=== PATIENT | male | born 1965 | race Two or more races ===

== ENCOUNTER 2024-02-12 14:55 | Outpatient (AMB) | payer BC, SELFPAY ==
[2024-02-12 15:24] VITALS: BP 131/67; PULSE 64; RESP 18; TEMP 36.5; O2SAT 96; BMI 22.6
--- NOTE | 2024-02-12 15:24 | GSCOFFNT_ITS ---
V[facility] Signs - [facility] 02/12/24 15:24 02/12/24 15:57 Height 1.73 m Height Method Stated Weight 67.614 kg Weight Measurement Method Standing Scale BMI 22.6 BP 131/67 H 131/67 H Blood Pressure Source Automatic Cuff Blood Pressure Location Right Upper Arm Position Sitting Respiration 18 18 Pulse 64 64 Pulse Source Monitor Temp 97.7 F 97.7 F Temp Source Temporal Artery Scan Pulse Oximetry (%) 96 96 Oxygen Delivery Method Room Air Med/Allergies Allergies & Medications Allergies No Known Allergies Allergy (Verified 02/12/24 15:25) Medication Reconciliation hydrocortisone acetate 25 mg rectal suppository (Anusol-HC) 25 mg [place] BID #24 ea 02/12/24 [Rx] MA Intake Visit Data Collection New Patient or Established: New Patient (never been to [facility]) Seen by Clinical Staff ONLY (RN/MA): No Reason for Visit:: referral hemorrhoids Pain Present Currently: No Cathead Worker Required: Yes PCP or OBGYN visit in last 3 months: Yes Hx Now: No Do You Feel Safe at Home: Yes Authorities Contacted: N/A Smoking Status Smoking Status: Never smoker Immunization / Flu Flu Vaccine in the Last 12 Months: No Flu Vaccine Exclusion Criteria: Refused by Patient Past Medical History Past Medical History NEUROLOGIC: Negative Neurological Disorders or Seizures CARDIAC: Negative Cardiac Disorders or Congestive Heart Failure RESPIRATORY: Negative Chronic Obstructive Pulmonary Disease (COPD) GASTROINTESTINAL: Negative Gastrointestinal Disorders GENITOURINARY: Negative Genitourinary Disorders or Renal Disease ENDOCRINE: Negative Endocrine Disorders, Diabetes Mellitus Type 1 or Diabetes Mellitus Type 2 HEMATOLOGIC: Negative Blood Disorders OTHER HISTORY: Negative Autoimmune Disease, Blood Transfusions or Anesthesia Reactions Surgical History SURGICAL: Positive Eye Surgery (Right eye Cataract) Social History SMOKING STATUS: Smoking status: Never smoker ALCOHOL: Alcohol Intake: Never HOUSING: Housing: House HPI HPI Narrative 59 y/o M presenting to the clinic for surgical evaluation of external hemorrhoids that are ongoing for 7 years. Per patient, he has 1-2 external hemorrhoids that are uncomfortable and sensitive to wiping with blood spotting on his tissue. He reports normal soft BM with drinking fiber, denies any constipation, straining or difficulty urinating. 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 ROS Review of Systems Systems Reviewed: All systems reviewed, normal except as documented Objective/Exam General General Appearance: alert, cooperative and well groomed Resp Respiratory exam: Absent respiratory distress Rectal Rectal exam: Present other (two enlarged external hemorrhoids with dark discoloration on left; normal LATA, internal hemorrhoid seen on anoscopy) Assessment & Plan Diagnosis / Problem List (1) External hemorrhoids: Status: Acute Assessment & Plan: 59M presenting with longstanding history of symptomatic hemorrhoids. Given the swollen nature I recommended sitz baths and will prescribe anusol suppositories, however as he has healthy bowel habits I did offer surgical intervention. I explained risks of surgery including bleeding, severe pain, inability to urinate requiring catheterization and hemorrhoid persistence/recurrence. Pt expressed understanding and would like to proceed [facility] Office Procedures GNS Level of Care Nursing/Assessment Patient Status: Established Patient Nursing Assessment/Reassesment: Medication Reconciliation, Update PMH in EMR and Vital Signs Coordination of Care: Complex Care and Chronic Disease 1-5, Education Complex Pt/Fam, Consent,records obtained, informed consent and Staff clarify orders Special Needs: Language special needs Established Patient Charge Established Patient Point Assignment: 90 Patient Portal Questionaires Social History Living Situation History Housing: House Tobacco History Smoking Status: Never smoker Alcohol History Alcohol Intake: Never Domestic Abuse History Do You Feel Safe at Home: Yes Review of Systems Report any current symptoms Only answer those that you have currently: Past Medical History Past Medical History Have you ever been diagnosed with any of the following: Neurological Problems Seizures: No Cardiology Problems Congestive Heart Failure: No Respiratory Problems Chronic Obstructive Pulmonary Disease (COPD): No Genital/Urinary Problems Renal Disease: No Endocrine Problems Diabetes Mellitus Type 1: No Diabetes Mellitus Type 2: No Other Problems Autoimmune Disease: No Blood Transfusions: No Anesthesia Reactions: No
--- NOTE | 2024-02-12 15:50 | PD.GSCLVISIT ---
Vital Signs - [facility] 02/12/24 15:24 02/12/24 15:57 Height 1.73 m Height Method Stated Weight 67.614 kg Weight Measurement Method Standing Scale BMI 22.6 BP 131/67 H 131/67 H Blood Pressure Source Automatic Cuff Blood Pressure Location Right Upper Arm Position Sitting Respiration 18 18 Pulse 64 64 Pulse Source Monitor Temp 97.7 F 97.7 F Temp Source Temporal Artery Scan Pulse Oximetry (%) 96 96 Oxygen Delivery Method Room Air Med/Allergies Allergies & Medications Allergies No Known Allergies Allergy (Verified 02/12/24 15:25) Medication Reconciliation hydrocortisone acetate 25 mg rectal suppository (Anusol-HC) 25 mg [place] BID #24 ea 02/12/24 [Rx] MA Intake Visit Data Collection Do You Feel Safe at Home: Yes Smoking Status Smoking Status: Never smoker Past Medical History Past Medical History NEUROLOGIC: Negative Neurological Disorders or Seizures CARDIAC: Negative Cardiac Disorders or Congestive Heart Failure RESPIRATORY: Negative Chronic Obstructive Pulmonary Disease (COPD) GASTROINTESTINAL: Negative Gastrointestinal Disorders GENITOURINARY: Negative Genitourinary Disorders or Renal Disease ENDOCRINE: Negative Endocrine Disorders, Diabetes Mellitus Type 1 or Diabetes Mellitus Type 2 HEMATOLOGIC: Negative Blood Disorders OTHER HISTORY: Negative Autoimmune Disease, Blood Transfusions or Anesthesia Reactions Surgical History SURGICAL: Positive Eye Surgery (Right eye Cataract) Social History SMOKING STATUS: Smoking status: Never smoker ALCOHOL: Alcohol Intake: Never HOUSING: Housing: House HPI HPI Narrative 59 y/o M presenting to the clinic for surgical evaluation of external hemorrhoids that are ongoing for 7 years. Per patient, he has 1-2 external hemorrhoids that are uncomfortable and sensitive to whipping with blood spotting on his tissue. He reports normal soft BM with drinking fiber, denies any constipation, straining or difficulty urinating. PMH: N/A PSH: Appy, Cataracts, Varicose vein removal; recent Colonoscopy last year in February. 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 ROS Constitutional Constitutional: Reports as per HPI, Denies chills, Denies weakness and Denies weight loss Eyes Eyes: Denies change in vision ENT Ears, Nose, Mouth, and Throat: Denies abnormal hearing, Denies otalgia and Denies odynophagia Cardiovascular Cardiovascular: Denies chest pain, Denies chest pain at rest, Denies edema and Denies pedal edema Respiratory Respiratory: Denies cough and Denies pain on inspiration Gastrointestinal Gastrointestinal: Denies abdominal pain, Denies bloating, Denies constipation and Denies odynophagia Neurologic Neurologic: Denies abnormal hearing and Denies weakness Objective/Exam General General Appearance: alert, in no apparent distress, comfortable and cooperative Rectal Rectal exam: Present hemorrhoids (2- enlarged hemorrhoids ) Assessment & Plan Diagnosis / Problem List (1) External hemorrhoids: Status: Acute Assessment & Plan: 59 y/o M presenting to the clinic with painful external hemorrhoids with some bleeding Plan After discussing the risks and benefits of THD procedure the patient opts to schedule the surgery Advised patient to use suppositories, sitz-baths, and hemorrhoid cream to reduce the inflammation prior to surgery Office Procedures GNS Level of Care Nursing/Assessment Patient Status: Established Patient Nursing Assessment/Reassesment: Medication Reconciliation, Update PMH in EMR and Vital Signs Coordination of Care: Complex Care and Chronic Disease 1-5, Education Complex Pt/Fam, Consent,records obtained, informed consent and Staff clarify orders Special Needs: Language special needs Established Patient Charge Established Patient Point Assignment: 90 Patient Portal Questionaires Social History Living Situation History Housing: House Tobacco History Smoking Status: Never smoker Alcohol History Alcohol Intake: Never Domestic Abuse History Do You Feel Safe at Home: Yes Review of Systems Report any current symptoms Only answer those that you have currently: General Complaints chills: No weakness: No weight loss: No Eyes change in vision: No Ear, Nose, & Throat abnormal hearing: No ear pain: No pain with swallowing: No Heart & Circulation chest pain: No chest pain at rest: No swelling: No foot swelling: No Breathing & Lungs cough: No pain taking a breath: No Digestive System abdominal pain: No bloating: No constipation: No Past Medical History Past Medical History Have you ever been diagnosed with any of the following: Neurological Problems Seizures: No Cardiology Problems Congestive Heart Failure: No Respiratory Problems Chronic Obstructive Pulmonary Disease (COPD): No Genital/Urinary Problems Renal Disease: No Endocrine Problems Diabetes Mellitus Type 1: No Diabetes Mellitus Type 2: No Other Problems Autoimmune Disease: No Blood Transfusions: No Anesthesia Reactions: No
== END 2024-02-12 15:54 | disposition home or self-care (01) ==
PROVIDERS: PCP Family Medicine; Referring Provider Family Medicine; Supervising Provider Surgery; Visit Provider Surgery
DX: K64.4 Residual hemorrhoidal skin tags (principal)
CPT/HCPCS: 99213; G0463

== ENCOUNTER 2024-03-10 07:05 | Day surgery (SDC) | payer BC, SELFPAY ==
[2024-03-09 07:31] VITALS: BMI 22.8
[2024-03-09 08:41] LABS: Basophils # (Auto) 0.1 Thou/mm3 (0.0-0.2); Basophils % (Auto) 1 % (0-2.5); Eosinophils # (Auto) 0.1 Thou/mm3 (0.0-0.5); Eosinophils % (Auto) 3 % (0-10); Hematocrit 42.6 % (41.0-53.0); Hemoglobin 14.4 g/dL (13.5-16.0); Immature Granulocytes % (Auto) 0 % (0-0); Immature Granulocytes Auto 0.01 Thou/mm3 (0.00-0.00); Lymphocytes # (Auto) 1.4 Thou/mm3 (1.0-4.8); Lymphocytes % (Auto) 30 % (10-50); Mean Corpuscular HGB Conc 33.8 g/dl (31.0-37.0); Mean Corpuscular Hemoglobin 30.3 pg (25.0-35.0); Mean Corpuscular Volume 90 fL (80-100); Monocytes # (Auto) 0.5 Thou/mm3 (0.0-0.8); Monocytes % (Auto) 10 % (0-12); Neutrophils # (Auto) 2.5 Thou/mm3 (1.8-7.7); Neutrophils % (Auto) 55 % (37-80); Nucleated Red Blood Cell % 0 /100 WBC (0); Platelet Count 291 Thou/mm3 (140-440); RDW Standard Deviation 50.2 fL (35.1-43.9); Red Blood Count 4.76 Miln/mm3 (4.50-5.90); White Blood Count 4.5 Thou/mm3 (3.8-10.6)
[2024-03-09 08:56] LABS: Anion Gap 7 (7-16); BUN/Creatinine Ratio 14 Ratio (12-20); Blood Urea Nitrogen 13 mg/dL (9-23); Carbon Dioxide 29.4 mMol/L (20.0-31.0); Chloride 104 mMol/L (98-107); Creatinine (Component) 0.9 mg/dL (0.6-1.3); Estimated Creatinine Clearance 85.2 mL/min (>60); Glucose 109 mg/dL (74-106); Osmolality,Calculated 280 (275-295); Potassium 4.6 mMol/L (3.4-5.1); Sodium 140 mMol/L (136-145); eGFR > 60 See Note
[2024-03-09 09:38] LABS: Prothrombin Time 10.9 Seconds (9.0-12.2)
[2024-03-10] VITALS (23 sets, daily range): BP systolic 118–156; BP diastolic 62–102; PULSE 52–95; RESP 10–20; TEMP 36.5–37.2; O2SAT 95–100; BMI 22.9
[2024-03-10] MEDS: RINGERS LACTATED 500 ML 500 ML 20 ML IV (08:24)
--- NOTE | 2024-03-10 11:53 | ESOP_ITS ---
Date of Procedure 03/10/24 Pre Op Diagnosis Symptomatic hemorrhoids Post Op Diagnosis Same Procedure Excisional hemorrhoidectomy Findings Large internal and external hemorrhoids at the left, right anterior and right posterior perianal regions Procedure Description Patient presented to my office with symptomatic hemorrhoids refractory to con servative management and in the setting of healthy bowel habits. I initially offered THD however was informed that his insurance declined to approve this procedure. I called myself for a peer to peer meeting and was advised that only excisional hemorrhoidectomy would be covered. This morning before the surgery I explained to the patient and his the risks and benefits, which ultimately are likely similar to those of THD given the large nature of patient's hemorrhoids. All questions were answered and patient ultimately agreed to proceed. Patient was brought to the OR, SCDs were placed and general anesthesia was induced. He was placed in lithotomy position with proper padding and was prepped and draped in usual sterile fashion. After timeout a LATA was performed which revealed very large internal and external hemorrhoids at the left perianal region, as well as the right anterior and posterior perianal regions. Attention was first turned to the left sided hemorrhoid. A figure of 8 Vicryl suture was placed at the most proximal aspect of the hemorrhoid. The anal Derm adjacent to the hemorrhoid was then grasped with a hemostat and half percent Marcaine was injected to lift the lesion. The anoderm was incised with a #15 blade and the tissues were dissected so that the anal sphincter was released from the hemorrhoidal tissue. The hemorrhoid was then excised using the small harmonic device until the [id number] suture was reached. The specimen was handed off and the anal mucosa was reapproximated for hemostasis using that 0 Vicryl suture. The right anterior and posterior hemorrhoids were excised in the same fashion. The anus was inspected and no bleeding was seen. Left and right pudendal nerve blocks were performed with half percent Marcaine for a total of 20 cc. Patient was returned to supine position and extubated without complication. He was brought to PACU in stable condition Pathology / specimen Other (Left, right anterior, and right posterior hemorrhoids) Estimated Blood Loss 20 Surgeon Joan Alberto MD Surgical Staff Operation Date: 03/10/24 10:15 Case Staff MUNITIONS HANDLER SUPERVISOR: Stephanie Sood
--- NOTE | 2024-03-10 11:58 | PD.SURDS ---
Planned Discharge Date 03/10/24 DS: Providers Provider Primary care physician: David Estevez MD Attending Provider on Admission: Joan Alberto MD Attending Provider on DC: Joan Alberto MD Discharging Provider: Joan Alberto MD Diagnosis Discharge Diagnosis (1) Hemorrhoids with complication: Status: Acute Problem List Completed Was Problem List Reviewed/Reconciled?: Yes Exam Vital Signs Temp Pulse Resp BP Pulse Ox 98 F 52 L 10 L 126/74 97 03/10/24 07:55 03/10/24 07:55 03/10/24 07:55 03/10/24 07:55 03/10/24 07:55 Discharge Plan Plan Patient Disposition: HOME (Self Care) Prescriptions/Referrals Prescriptions/Med Rec: New oxycodone-acetaminophen [Percocet] 5-325 mg tablet 1 tab PO Q6H MDD 6 tabs PRN (Reason: pain) Qty: 30 0RF ibuprofen 800 mg tablet 800 mg PO Q8H PRN (Reason: pain) Qty: 30 0RF docusate sodium [Colace] 100 mg capsule 100 mg PO QDAY Qty: 30 0RF Referrals: David Estevez MD [Primary Care Provider] - Joan Alberto MD [Physician] - (You will receive a phone call to confirm a follow-up appointment with me in 6 weeks) Patient/Caregiver Discharge Instructions Other Discharge Activity Instructions:: Avoid constipation and diarrhea You may take both Percocet and ibuprofen as needed for pain, try to stagger them so that you are not waiting too long in between doses If you develop inability to urinate, bleeding that does not stop, worsening pain, or fever please seek care in ER Education Materials: Discharge Instructions for ..., Taking a Sitz Bath Print Language: Yoruba Stand Alone Forms: Maria Luisa Award Info., Patient Portal Info Letter Discharge Order Discharge Orders: Discharge (Routine); Ordered 03/10/24 Ordered By: Joan Alberto Results Results: Laboratory Laboratory results: results reviewed Procedures Procedure Date 03/10/24 Procedures Excisional hemorrhoidectomy
--- NOTE | 2024-03-10 12:00 | SUR.PHASEI ---
1200 Patient arrived to recovery resting comfortably in [facility], on oxygen 6L via oxy mask, breathing unlabored, vital signs stable, denies pain, dressing intact to buttock; ointment, abd, fluffs, mesh underwear, no bleeding noted, lung sounds clear upon auscultation, bilateral radial pulses present when palpated, report received from Stephanie BECKER and Nestor BARRERA
--- NOTE | 2024-03-10 12:15 | SUR.PHASEI ---
[address] Alberto patient is to urinate prior to discharge
[2024-03-10] MEDS: HYDROcodone/APAP 10/325 TAB PO (12:51)
--- NOTE | 2024-03-10 12:54 | SUR.PHASEII ---
received report from nurse edge. pt states pain 10/07. pt just medicated by nurse with po after 2 doses iv meds. will give flomax when pharmacy brings.
[2024-03-10] MEDS: TAMSULOSIN HCL 0.4 MG CAPSULE PO (12:57)
[2024-03-10] MEDS: fentaNYL CIT INJ 50 mCg/ML AMP 2ML IV (13:17)
--- NOTE | 2024-03-10 13:30 | SUR.PHASEII ---
3247 patient bedside with patient
--- NOTE | 2024-03-10 13:30 | SUR.PHASEII ---
report to nurse mehdi betancourt
--- NOTE | 2024-03-10 14:25 | SUR.PHASEII ---
1425 Patient attempting to void in urinal unable to, will continue to encourage fluids for patient to void
--- NOTE | 2024-03-10 15:15 | SUR.PHASEII ---
1515 Patient sitting up in bed eating sandwich, fruit, soup, tolerating well, drinking coffee and tea
--- NOTE | 2024-03-10 15:45 | SUR.PHASEII ---
8985 Patient walked to the restroom, unable to void, will continue to monitor patient and encourage him to drink fluid
--- NOTE | 2024-03-10 16:52 | SUR.PHASEII ---
1638 Patient in the restroom unable to void, Dr. Alberto notified, MD order for patient to be bladder scan 1650 Patient bladder scan, 450ml of fluid in bladder per scan 1652 Dr. Alberto notified of results of bladder scan, orders received to continue to monitor patient, do not give patient any more fluid, call MD if patient has not urinated by 1800
--- NOTE | 2024-03-10 18:11 | SUR.PHASEII ---
Addendum entered by Joselin Kirkpatrick RN 03/10/24 18:42: correction Friday03/12/24 Original Note: [address] Alberto as patient is still unable to void, order received to catheterize patient and patient is to go home with catheter and have it removed on Friday03/11/[address] Mcmahon office, per
--- NOTE | 2024-03-10 18:28 | SUR.PHASEII ---
Olivia catheter 16F place in patient per MD order, patient will go home with olivia catheter, per MD order
--- NOTE | 2024-03-10 18:48 | SUR.PHASEII ---
1847 Dr. Alberto notified patient urinary catheter in place, patient tolerated well, drained 500ml-bright yellow, urine. Per MD patient can proceed with discharge
--- NOTE | 2024-03-10 18:56 | SUR.PHASEII ---
1856 Patient meets discharge criteria from recovery, awake and alert, breathing unlabored, vital signs stable, denies pain, dressing intact; scant amount of blood noted to dressing, new dressing provided to patient, patient and his educated on post op bleeding and when to seek medical attention, both receptive, patient denies nausea, patient is discharging with 16F Lacey catheter in place with leg secure, patient and his educated on home care for Lacey catheter and receptive, patient signed limited proficiency statement for his to automotive technician instructor Turkmen to him, discharge instructions given to patient and patient , signed discharge instructions. Patient given all his belongings prior to discharge, transported via wheelchair and left in a private vehicle.
== END 2024-03-10 18:56 | disposition home or self-care (01) ==
PROVIDERS: PCP Family Medicine; Referring Provider Surgery; Visit Provider Surgery
PROC: (CPT 46260; principal; 2024-03-10 10:00)
DX: K64.4 Residual hemorrhoidal skin tags (principal); K64.8 Other hemorrhoids
CPT/HCPCS: 46260; 36415; 80048; 85025; 85610; 85730; A4217; A4649; J1100; J2405; J2704; J3010; J3490; J7120; A9270; J1596

== ENCOUNTER 2024-03-12 12:59 | Outpatient (AMB) | payer BC, SELFPAY ==
[2024-03-12 13:09] VITALS: BP 128/75; PULSE 58; RESP 18; TEMP 36.3; O2SAT 98; BMI 22.9
--- NOTE | 2024-03-12 13:09 | GSCOFFNT_ITS ---
Vital Signs - [facility] 03/12/24 13:09 Height 1.73 m Height Method Stated Weight 68.748 kg Weight Measurement Method Standing Scale BMI 22.9 BP 128/75 Blood Pressure Source Automatic Cuff Blood Pressure Location Right Upper Arm Position Sitting Respiration 18 Pulse 58 L Pulse Source Monitor Temp 97.3 F Temp Source Temporal Artery Scan Pulse Oximetry (%) 98 Med/Allergies Allergies & Medications Allergies No Known Allergies Allergy (Verified 03/12/24 13:10) Medication Reconciliation docusate sodium 100 mg capsule (Colace) 100 mg PO QDAY #30 caps 03/10/24 [Rx Confirmed 03/12/24] ibuprofen 800 mg tablet 800 mg PO Q8H PRN pain #30 tabs 03/10/24 [Rx Confirmed 03/12/24] oxycodone-acetaminophen 5 mg-325 mg tablet (Percocet) 1 tab PO Q6H PRN pain #30 tabs 03/10/24 [Rx Confirmed 03/12/24] tamsulosin 0.4 mg capsule (Flomax) 0.4 mg PO QDAY #14 caps 03/10/24 [Rx Confirmed 03/12/24] MA Intake Visit Data Collection New Patient or Established: Established Patient (seen at [facility] within 3 years) Reason for Visit:: FOLLOW UP[ Pain Present Currently: Yes Pain Location: Buttock Pain scale:: 8 Pain Scale Used: Salazar-Irvin/Numerical Product Safety Head Required: No PCP or OBGYN visit in last 3 months: Yes Hx Now: No Do You Feel Safe at Home: Yes Authorities Contacted: N/A Smoking Status Smoking Status: Former smoker Immunization / Flu Flu Vaccine in the Last 12 Months: No Flu Vaccine Exclusion Criteria: No Exclusion Criteria Past Medical History Past Medical History NEUROLOGIC: Negative Neurological Disorders or Seizures CARDIAC: Positive Cardiac Disorders and Varicose Veins; Negative Congestive Heart Failure RESPIRATORY: Negative Chronic Obstructive Pulmonary Disease (COPD) GASTROINTESTINAL: Positive Gastrointestinal Disorders and Hemorrhoids; Negative Hepatitis GENITOURINARY: Negative Genitourinary Disorders or Renal Disease ENT: Positive Cataracts (right) ENDOCRINE: Negative Endocrine Disorders, Diabetes Mellitus Type 1 or Diabetes Mellitus Type 2 HEMATOLOGIC: Negative Blood Disorders OTHER HISTORY: Positive Chicken Pox and Clostridium Difficile; Negative Hospitalization, Autoimmune Disease, Shingles, Blood Transfusions, Blood Transfusion Reaction, Anesthesia Reactions or Cancer Family History FAMILY HISTORY: Positive Family Cardiac Disorders; Negative Family Psychiatric Problems, Family Respiratory Disorders, Family Gastrointestinal Problems, Family Cancer, Family Surgery or Family Anesthesia Reaction Surgical History SURGICAL: Positive Vascular Surgery (varicose vein excision) and Eye Surgery Social History SMOKING STATUS: Smoking status: Former smoker ALCOHOL: Alcohol Intake: Current HOUSING: Housing: House HPI HPI Narrative 59M s/p hemorrhoidectomy 03/10 complicated by urinary retention here for olivia removal. Pt reports he has lots of pain as he was not given his narcotic at the pharmacy; he has been unable to sleep and has not yet had a BM. Pt denies any other complaints ROS Review of Systems Systems Reviewed: All systems reviewed, normal except as documented Objective/Exam General General Appearance: alert, cooperative and well groomed Resp Respiratory exam: Absent respiratory distress Assessment & Plan Diagnosis / Problem List (1) Hemorrhoids with complication: Status: Acute Assessment & Plan: 59M s/p hemorrhoidectomy 03/10 complicated by urinary retention. I removed the f oley in office today and gave strict return precautions Plan: F/u in 6 weeks Office Procedures GNS Level of Care Nursing/Assessment Patient Status: Established Patient Nursing Assessment/Reassesment: Medication Reconciliation, Update PMH in EMR and Vital Signs Coordination of Care: Complex Care and Chronic Disease 1-5, Education Complex Pt/Fam, Consent,records obtained, informed consent, Results/Orders obtained and Staff clarify orders Special Needs: Language special needs Miscellaneous Interventions: Phys assist w/Procedure (CATHETER REMOVAL ) Established Patient Charge Established Patient Point Assignment: 120 Established Patient Point Charge: EP Level 3 (80-115) Patient Portal Questionaires Social History Living Situation History Housing: House Tobacco History Smoking Status: Former smoker Alcohol History Alcohol Intake: Current Domestic Abuse History Do You Feel Safe at Home: Yes Review of Systems Report any current symptoms Only answer those that you have currently: Past Medical History Past Medical History Have you ever been diagnosed with any of the following: Neurological Problems Seizures: No Cardiology Problems Congestive Heart Failure: No Varicose Veins: Yes Respiratory Problems Chronic Obstructive Pulmonary Disease (COPD): No Stomache/Intestinal Problems Hepatitis: No Hemorrhoids: Yes Genital/Urinary Problems Renal Disease: No Head,Eye,Nose,Throat Problems Cataracts: Yes (right) Endocrine Problems Diabetes Mellitus Type 1: No Diabetes Mellitus Type 2: No Other Problems Hospitalization: No Autoimmune Disease: No Shingles: No Blood Transfusions: No Blood Transfusion Reaction: No Anesthesia Reactions: No Chicken Pox: Yes Clostridium Difficile: Yes Cancer: No
== END 2024-03-12 13:14 | disposition home or self-care (01) ==
LOC: HODSRG 12:59
PROVIDERS: PCP Family Medicine; Referring Provider Family Medicine; Supervising Provider Surgery; Visit Provider Surgery
DX: Z46.6 Encounter for fitting and adjustment of urinary device (principal); Z98.890 Other specified postprocedural states
CPT/HCPCS: 99213; G0463

== ENCOUNTER → 2024-04-07 | Outpatient (CLI) | payer BC, SELFPAY ==
[2024-04-07 09:38] LABS: Glucose Estimated Average 120 mg/dL (80-131); Hemoglobin A1C 5.8 % Hgb (4.8-6.0)
[2024-04-07 09:41] LABS: Glucose,Fasting 105 mg/dL (74-106)
== END | disposition home or self-care (01) ==
LOC: COPL 08:03
PROVIDERS: PCP Family Medicine; Referring Provider Family Medicine; Visit Provider Family Medicine
DX: R73.09 Other abnormal glucose (principal)
CPT/HCPCS: 36415; 82947; 83036

== ENCOUNTER 2024-04-19 13:27 | Outpatient (AMB) | payer BC, SELFPAY ==
--- NOTE | 2024-04-19 13:35 | PD.GSCLVISIT ---
[facility] - [facility] 04/19/24 13:36 Height 1.73 m Height Method Stated Weight 69.938 kg Weight Measurement Method Standing Scale BMI 23.3 BP 123/73 Blood Pressure Source Automatic Cuff Blood Pressure Location Left Upper Arm Position Sitting Respiration 19 Pulse 59 L Pulse Source Monitor Temp 98.0 F Temp Source Temporal Artery Scan Pulse Oximetry (%) 98 Oxygen Delivery Method Room Air Med/Allergies Allergies & Medications Allergies No Known Allergies Allergy (Verified 04/19/24 13:36) Medication Reconciliation docusate sodium 100 mg capsule (Colace) 100 mg PO QDAY #30 caps 03/10/24 [Rx Confirmed 04/19/24] ibuprofen 800 mg tablet 800 mg PO Q8H PRN pain #30 tabs 03/10/24 [Rx Confirmed 04/19/24] oxycodone-acetaminophen 5 mg-325 mg tablet (Percocet) 1 tab PO Q6H PRN pain #30 tabs 03/10/24 [Rx Confirmed 04/19/24] tamsulosin 0.4 mg capsule (Flomax) 0.4 mg PO QDAY #14 caps 03/10/24 [Rx Confirmed 04/19/24] hydrocortisone 2.5 % topical cream with perineal applicator (Anusol-HC) 1 applic [place] QD-BID PRN hemorrhoids #30 grams 04/19/24 [Rx] MA Intake Visit Data Collection New Patient or Established: Established Patient (seen at [facility] within 3 years) Seen by Clinical Staff ONLY (RN/MA): No Reason for Visit:: POST OP F/U Pain Present Currently: No Office Support Assistant Required: Yes PCP or OBGYN visit in last 3 months: Yes Hx Now: No Do You Feel Safe at Home: Yes Authorities Contacted: N/A Smoking Status Smoking Status: Former smoker Immunization / Flu Flu Vaccine in the Last 12 Months: No Flu Vaccine Exclusion Criteria: No Exclusion Criteria Past Medical History Past Medical History NEUROLOGIC: Negative Neurological Disorders or Seizures CARDIAC: Positive Cardiac Disorders and Varicose Veins; Negative Congestive Heart Failure RESPIRATORY: Negative Chronic Obstructive Pulmonary Disease (COPD) GASTROINTESTINAL: Positive Gastrointestinal Disorders and Hemorrhoids; Negative Hepatitis GENITOURINARY: Negative Genitourinary Disorders or Renal Disease ENT: Positive Cataracts (right) ENDOCRINE: Negative Endocrine Disorders, Diabetes Mellitus Type 1 or Diabetes Mellitus Type 2 HEMATOLOGIC: Negative Blood Disorders OTHER HISTORY: Positive Chicken Pox and Clostridium Difficile; Negative Hospitalization, Autoimmune Disease, Shingles, Blood Transfusions, Blood Transfusion Reaction, Anesthesia Reactions or Cancer Family History FAMILY HISTORY: Positive Family Cardiac Disorders; Negative Family Psychiatric Problems, Family Respiratory Disorders, Family Gastrointestinal Problems, Family Cancer, Family Surgery or Family Anesthesia Reaction Surgical History SURGICAL: Positive Vascular Surgery (varicose vein excision) and Eye Surgery Social History SMOKING STATUS: Smoking status: Former smoker ALCOHOL: Alcohol Intake: Current HOUSING: Housing: House HPI HPI Narrative Spoke to pt with in-person in tube conversion technician 59M s/p hemorrhoidectomy 03/10 complicated by urinary retention here for follow up. Pt reports feeling well overall, he denies any pain, has minimal blood with wiping and no itching. He is using sitz baths 2-3 times per day and his BMs alternate between soft and hard. He is not using any other remedies at the moment, feels the swelling is improving although there is still a ball in the area that he is hoping will go down further ROS Review of Systems Systems Reviewed: All systems reviewed, normal except as documented Objective/Exam General General Appearance: alert, cooperative and well groomed Resp Respiratory exam: Absent respiratory distress Assessment & Plan Diagnosis / Problem List (1) Hemorrhoids with complication: Status: Acute Assessment & Plan: 59M s/p hemorrhoidectomy 03/10 complicated by urinary retention here for follow up, recovering well overall Plan: Hydrocortisone cream F/u in 6 weeks Office Procedures GNS Level of Care Nursing/Assessment Patient Status: Established Patient Nursing Assessment/Reassesment: Medication Reconciliation, Update PMH in EMR and Vital Signs Coordination of Care: Complex Care and Chronic Disease 1-5, Consent,records obtained, informed consent, Education Simp Pt/Fam, Results/Orders obtained and Staff clarify orders Special Needs: Language special needs Established Patient Charge Established Patient Point Assignment: 90 Established Patient Point Charge: EP Level 3 (80-115) Patient Portal Questionaires Social History Living Situation History Housing: House Tobacco History Smoking Status: Former smoker Alcohol History Alcohol Intake: Current Domestic Abuse History Do You Feel Safe at Home: Yes Review of Systems Report any current symptoms Only answer those that you have currently: Past Medical History Past Medical History Have you ever been diagnosed with any of the following: Neurological Problems Seizures: No Cardiology Problems Congestive Heart Failure: No Varicose Veins: Yes Respiratory Problems Chronic Obstructive Pulmonary Disease (COPD): No Stomache/Intestinal Problems Hepatitis: No Hemorrhoids: Yes Genital/Urinary Problems Renal Disease: No Head,Eye,Nose,Throat Problems Cataracts: Yes (right) Endocrine Problems Diabetes Mellitus Type 1: No Diabetes Mellitus Type 2: No Other Problems Hospitalization: No Autoimmune Disease: No Shingles: No Blood Transfusions: No Blood Transfusion Reaction: No Anesthesia Reactions: No Chicken Pox: Yes Clostridium Difficile: Yes Cancer: No
[2024-04-19 13:36] VITALS: BP 123/73; PULSE 59; RESP 19; TEMP 36.7; O2SAT 98; BMI 23.3
== END 2024-04-19 13:42 | disposition home or self-care (01) ==
LOC: HODSRG 13:27
PROVIDERS: PCP Family Medicine; Referring Provider Family Medicine; Supervising Provider Surgery; Visit Provider Surgery
DX: Z48.815 Encounter for surgical aftercare following surgery on the digestive system (principal); R33.9 Retention of urine, unspecified
CPT/HCPCS: 99213; G0463

== ENCOUNTER 2024-05-24 14:45 | Outpatient (AMB) | payer BC, SELFPAY ==
[2024-05-24 15:18] VITALS: BP 114/70; PULSE 64; RESP 18; TEMP 36.7; O2SAT 94; BMI 22.9
--- NOTE | 2024-05-24 15:18 | GSCOFFNT_ITS ---
[facility] - [facility] 05/24/24 15:18 Height 1.73 m Height Method Stated Weight 68.606 kg Weight Measurement Method Standing Scale BMI 22.9 BP 114/70 Blood Pressure Source Automatic Cuff Blood Pressure Location Left Upper Arm Position Sitting Respiration 18 Pulse 64 Pulse Source Monitor Temp 98.1 F Temp Source Temporal Artery Scan Pulse Oximetry (%) 94 L Oxygen Delivery Method Room Air Med/Allergies Allergies & Medications Allergies No Known Allergies Allergy (Verified 05/24/24 15:19) Medication Reconciliation docusate sodium 100 mg capsule (Colace) 100 mg PO QDAY #30 caps 03/10/24 [Rx Confirmed 05/24/24] ibuprofen 800 mg tablet 800 mg PO Q8H PRN pain #30 tabs 03/10/24 [Rx Confirmed 05/24/24] oxycodone-acetaminophen 5 mg-325 mg tablet (Percocet) 1 tab PO Q6H PRN pain #30 tabs 03/10/24 [Rx Confirmed 05/24/24] tamsulosin 0.4 mg capsule (Flomax) 0.4 mg PO QDAY #14 caps 03/10/24 [Rx Confirmed 05/24/24] hydrocortisone 2.5 % topical cream with perineal applicator (Anusol-HC) 1 applic [place] QD-BID PRN hemorrhoids #30 grams 04/19/24 [Rx Confirmed 05/24/24] MA Intake Visit Data Collection New Patient or Established: Established Patient (seen at [facility] within 3 years) Reason for Visit:: FOLLOW UP Pain Present Currently: No Clerical And Office Support Workers Required: Yes PCP or OBGYN visit in last 3 months: Yes Hx Now: No Do You Feel Safe at Home: Yes Authorities Contacted: N/A Smoking Status Smoking Status: Former smoker Immunization / Flu Flu Vaccine in the Last 12 Months: No Flu Vaccine Exclusion Criteria: No Exclusion Criteria Past Medical History Past Medical History NEUROLOGIC: Negative Neurological Disorders or Seizures CARDIAC: Positive Cardiac Disorders and Varicose Veins; Negative Congestive Heart Failure RESPIRATORY: Negative Chronic Obstructive Pulmonary Disease (COPD) GASTROINTESTINAL: Positive Gastrointestinal Disorders and Hemorrhoids; Negative Hepatitis GENITOURINARY: Negative Genitourinary Disorders or Renal Disease ENT: Positive Cataracts (right) ENDOCRINE: Negative Endocrine Disorders, Diabetes Mellitus Type 1 or Diabetes Mellitus Type 2 HEMATOLOGIC: Negative Blood Disorders OTHER HISTORY: Positive Chicken Pox and Clostridium Difficile; Negative Hospitalization, Autoimmune Disease, Shingles, Blood Transfusions, Blood Transfusion Reaction, Anesthesia Reactions or Cancer Family History FAMILY HISTORY: Positive Family Cardiac Disorders; Negative Family Psychiatric Problems, Family Respiratory Disorders, Family Gastrointestinal Problems, Family Cancer, Family Surgery or Family Anesthesia Reaction Surgical History SURGICAL: Positive Vascular Surgery (varicose vein excision) and Eye Surgery Social History SMOKING STATUS: Smoking status: Former smoker ALCOHOL: Alcohol Intake: Current HOUSING: Housing: House HPI HPI Narrative Spoke to pt with in-person human services instructor 59M s/p hemorrhoidectomy 03/10 complicated by urinary retention here for follow up. Patient reports feeling very well, he has no pain, the area of swelling that he noticed earlier has decreased and his bowel movements are soft and regular ROS Review of Systems Systems Reviewed: All systems reviewed, normal except as documented Objective/Exam General General Appearance: alert, cooperative and well groomed Resp Respiratory exam: Absent respiratory distress Assessment & Plan Diagnosis / Problem List (1) Hemorrhoids with complication: Status: Acute Assessment & Plan: 59M s/p hemorrhoidectomy 03/10, recovering very well Plan: Follow-up as needed Office Procedures GNS Level of Care Nursing/Assessment Patient Status: Established Patient Nursing Assessment/Reassesment: Medication Reconciliation, Update PMH in EMR and Vital Signs Coordination of Care: Complex Care and Chronic Disease 1-5, Consent,records obtained, informed consent, Education Simp Pt/Fam, Results/Orders obtained and Staff clarify orders Special Needs: Language special needs Established Patient Charge Established Patient Point Assignment: 90 Established Patient Point Charge: EP Level 3 (80-115) Patient Portal Questionaires Social History Living Situation History Housing: House Tobacco History Smoking Status: Former smoker Alcohol History Alcohol Intake: Current Domestic Abuse History Do You Feel Safe at Home: Yes Review of Systems Report any current symptoms Only answer those that you have currently: Past Medical History Past Medical History Have you ever been diagnosed with any of the following: Neurological Problems Seizures: No Cardiology Problems Congestive Heart Failure: No Varicose Veins: Yes Respiratory Problems Chronic Obstructive Pulmonary Disease (COPD): No Stomache/Intestinal Problems Hepatitis: No Hemorrhoids: Yes Genital/Urinary Problems Renal Disease: No Head,Eye,Nose,Throat Problems Cataracts: Yes (right) Endocrine Problems Diabetes Mellitus Type 1: No Diabetes Mellitus Type 2: No Other Problems Hospitalization: No Autoimmune Disease: No Shingles: No Blood Transfusions: No Blood Transfusion Reaction: No Anesthesia Reactions: No Chicken Pox: Yes Clostridium Difficile: Yes Cancer: No
== END 2024-05-24 15:24 | disposition home or self-care (01) ==
LOC: HODSRG 14:45
PROVIDERS: PCP Family Medicine; Referring Provider Family Medicine; Supervising Provider Surgery; Visit Provider Surgery
DX: Z48.815 Encounter for surgical aftercare following surgery on the digestive system (principal)
CPT/HCPCS: 99213; G0463